=== PATIENT | female | born 1985 | race Caucasian/White ===

== ENCOUNTER 2018-04-19 15:09 | Emergency (ER) | payer BC ==
--- NOTE | 2018-04-19 15:47 | EDM.PDOC ---
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 She states that she is around 9 weeks . her LMP was 02/06/18. She notes that she has had 1 miscarriage, and 1 prior live . She states that this afternoon she noticed the vaginal bleeding with small stringy clots associated. She thinks that she has been soaking 1 pad/hr. She does take progesterone suppositories. She is A- blood type and will need a rhogham injection today. She notes that she is having some abdominal cramping associated with this as well. She does still have her appendix, but denies any fever/chills. She is not having pain anywhere. 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 Social & Family History - Family History Family Medical History: Noncontributory - Tobacco Use Smoking Status *Q: Never Smoker - Caffeine Use Caffeine Use: Reports: None - Recreational Drug Use Recreational Drug Use: No ED ROS GENERAL - Review of Systems Review Of Systems: See Below Constitutional: Denies: Fever, Chills HEENT: Reports: No Symptoms Respiratory: Reports: No Symptoms Cardiovascular: Reports: No Symptoms Endocrine: Reports: No Symptoms GI/Abdominal: Reports: No Symptoms : Reports: Other (vaginal bleeding/lower abdominal cramping) Musculoskeletal: Reports: No Symptoms Skin: Reports: No Symptoms Neurological: Reports: No Symptoms Psychiatric: Reports: No Symptoms Hematologic/Lymphatic: Reports: No Symptoms, Other (Patient has A- blood type) Immunologic: Reports: No Symptoms ED EXAM - Physical Exam Exam: See Below Exam Limited By: No Limitations General Appearance: Alert, WD/WN, No Apparent Distress Eye Exam: Bilateral Eye: Normal Inspection, PERRL Ears: Normal External Exam Nose: Normal Inspection Throat/Mouth: Normal Inspection, Normal Oropharynx Head: Atraumatic, Normocephalic Neck: Normal Inspection Respiratory/Chest: No Respiratory Distress, Lungs Clear, Normal Breath Sounds, No Accessory Muscle Use, Chest Non-Tender Cardiovascular: Normal Peripheral Pulses, Regular Rate, Rhythm, No Murmur GI/Abdominal Exam: Normal Bowel Sounds, Soft, Non-Tender, No Distention, No Mass (Female) Exam: Other (deferred due to transvaginial US) Heart Tones: Not Trinity Movement: Not Appreciated Extremities: Normal Inspection, Normal Capillary Refill Neurological: Alert, Oriented, Normal Cognition, No Motor/Sensory Deficits Psychiatric: Normal Affect, Anxious, Tearful (pt is worried that she may be having another miscarriage) Skin Exam: Warm, Dry, Intact, Normal Color Course - Vital Signs Last Recorded V/S: Last Vital Signs Temp 99 F 04/19/18 15:10 Pulse 104 H 04/19/18 15:10 Resp 18 04/19/18 15:10 BP 122/79 04/19/18 15:10 Pulse Ox 100 04/19/18 15:10 - Orders/Labs/Meds Orders: Active Orders 24 hr Category Date Time Status PATIENT RETYPE [BBK] Routine Lab 04/19/18 17:02 Ordered Labs: Laboratory Tests 04/19/18 04/19/18 04/19/18 Range/Units 15:44 15:44 15:44 WBC 9.76 (3.98-10.04) K/mm3 RBC 4.45 (3.98-5.22) M/mm3 Hgb 12.9 (11.2-15.7) gm/L Hct 38.6 (34.1-44.9) % MCV 86.7 (79.4-94.8) fl MCH 29.0 (25.6-32.2) pg MCHC 33.4 (32.2-35.5) g/dl RDW Std Deviation 39.9 (36.4-46.3) fL Plt Count 393 H (182-369) K/mm3 MPV 8.5 L (9.4-12.3) fl Neutrophils % (Manual) 78 H (40-60) % Band Neutrophils % 0 (0-10) % Lymphocytes % (Manual) 15 L (20-40) % Atypical Lymphs % 0 % Monocytes % (Manual) 5 (2-10) % Eosinophils % (Manual) 1 (0.7-5.8) % Basophils % (Manual) 1 (0.1-1.2) Platelet Estimate Adequate RBC Morph Comment Normal HCG, Quant 19444.0 mIU/mL Blood Type A NEGATIVE Gel Antibody Screen Negative Rhogam Indicated Yes Meds: Medications Discontinued Medications Generic Name Dose Route Start Last Admin Trade Name Chrissy PRN Reason Stop Dose Admin Acetaminophen 650 mg 04/19/18 17:07 04/19/18 17:18 Tylenol PO 04/19/18 17:08 650 mg NOW ONE Administration - Re-Assessments/Exams Free Text/Narrative Re-Assessment/Exam: 04/19/18 15:51 Pt presents to the ED for the evaluation of vaginal bleeding with . Have ordered CBC, HCG quant, Rhogham workup, and a transvaginal US for further evaluation. Have reviewed prior records from [facility] in [place], [place]. The patient's blood type is A-, so she will need a rhogham injection. 04/19/18 17:15 US is done and the radiologist reads: No pole or yolk sac seen. Gestational sac at 6 weeks 4 days. Findings most likely represent nonviable although recommend repeat study in 11 days, if patient does not miscarry in the mean time. These results were discussed at bedside with patient and . She states that her OB doctor, Dr. Thayer would like today's labs and note faxed to their office. Pt was experiencing some cramping and 650mg Tylenol has been ordered. I have recommended Bed rest, no sexual activity and return precautions. I have also recommended that the patient follow up with her OB sometime this week yet for a closer f/u. Pt is agreeable to this. Departure - Departure Time of Disposition: 17:24 Disposition: Home, Self-Care 01 Condition: Fair Clinical Impression: Threatened miscarriage in early - Discharge Information *PRESCRIPTION DRUG MONITORING PROGRAM REVIEWED*: No *COPY OF PRESCRIPTION DRUG MONITORING REPORT IN PATIENT LOPEZ: No Instructions: Vaginal Bleeding During , First Trimester, Threatened Miscarriage, [id number] Referrals: PCP,Not In Area [Primary Care Provider] - Forms: ED Department Discharge Additional Instructions: You have been evaluated in the ED for vaginal bleeding during . Your US showed that you could be possible having a miscarriage. Recommend early follow up with your OB, Dr. Thayer sometime this week yet for f/ u ultrasound and further testing if needed. Please return to ED if you are soaking through 1 or more pads per hour for 2-3 hours straight. Recommend bed rest and non-exertional activities, no sexual activity until you can get follow up done by your OB. - My Orders Last 24 Hours: My Active Orders 04/19/18 17:02 PATIENT RETYPE [BBK] Routine - Assessment/Plan Last 24 Hours: My Active Orders 04/19/18 17:02 PATIENT RETYPE [BBK] Routine
--- NOTE | 2018-04-19 16:59 | US ---
First trimester obstetrical ultrasound: Multiple real-time images were obtained transvaginally. Single intrauterine gestational sac is seen. No definite pole or yolk sac is seen. Right ovarian cyst is seen measuring 2.9 cm which appears simple and most likely physiologic. Left ovary is unremarkable. No free fluid is seen. Measurements: Mean sac diameter: 1.64 cm - 6 weeks 4 days Impression: 1. No pole or yolk sac is seen. Gestational sac at 6 weeks 4 days. Findings most likely represent nonviable although recommend repeat study in 11 days and patient does not miscarry in the interim. Diagnostic code #5
[2018-04-19] MEDS ORDERED: Acetaminophen 325 MG Tab PO ONE (17:07)
== END 2018-04-19 17:40 | disposition home or self-care (01) ==
LOC: JD.ED 15:09
DX: O20.0 Threatened abortion (principal); Z79.899 Other long term (current) drug therapy; Z3A.09 9 weeks gestation of pregnancy
CPT/HCPCS: 36415; 76817; 84702; 85007; 85027; 86850; 86900; 86901; 96372; 99284; A9270; J2790

== ENCOUNTER 2019-07-09 17:00 | Emergency (ER) | payer BC ==
[2019-07-09] MEDS ORDERED: Ondansetron 4 MG/2 ML SDV IVPUSH ONE (17:28)
[2019-07-09] MEDS ORDERED: HYDROmorphone 0.5 MG/0.5 ML Syringe IVPUSH ONE (17:28)
[2019-07-09] MEDS ORDERED: Sodium Chloride 0.9% 10 ML Syringe FLUSH PRN (17:28)
--- NOTE | 2019-07-09 17:35 | EDM.PDOC ---
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 The patient notes that she had a D&C on Wednesday, 07/04, by Dr. Thayer in [place] due to a miscarriage. The patient notes that the BELLING MACHINE OPERATOR states that the procedure went well, she had very minimal bleeding, and she notes no increased vaginal bleeding at this time. The patient is having some nausea, but no vomiting or diarrhea, she states she did have a BM this a.m., but was not able to pass gas today but was able to pass gas yesterday. She states she has not had any fevers at home but has felt chilled, she has no other abdomen surgeries. She did take ibuprofen, 800 mg last at 7 AM, she has been alternating between Tylenol and ibuprofen for the pain, is not been doing much. She tried taking the narcotic pain medications given but she states that they made her nauseous so she stopped taking them. Patient notes generalized bloating in her abdomen as well, upon initial exam she does look rather uncomfortable on the ER cot. Abdominal Pain Score (Numeric/FACES): 8 - Related Data Allergies Allergy/AdvReac Type Severity Reaction Status Date / Time No Known Allergies Allergy Verified 07/09/19 17:17 Home Meds: Home Meds . [No Known Home Meds] 07/09/19 [History] Past Medical History BELLING MACHINE OPERATOR History: Reports: Spontaneous - Past Surgical History GI Surgical History: Reports: Colonoscopy Female Surgical History: Reports: D&C (07/05/19) Other Female Surgeries/Procedures: also hx of infertility with In vitro fertilization Social & Family History - Family History Family Medical History: Noncontributory - Tobacco Use Smoking Status *Q: Never Smoker Second Hand Smoke Exposure: No - Caffeine Use Caffeine Use: Reports: Coffee, Soda - Recreational Drug Use Recreational Drug Use: No ED ROS GENERAL - Review of Systems Review Of Systems: Comprehensive ROS is negative, except as noted in HPI. ED EXAM, RENAL/ - Physical Exam Exam: See Below Exam Limited By: No Limitations General Appearance: Alert, WD/WN, No Apparent Distress (pt appears to be moderatly uncomfortable d/t abd pain/bloating) Throat/Mouth: Normal Inspection, Normal Lips, Normal Teeth, Normal Gums, Normal Oropharynx, Normal Voice, No Airway Compromise Head: Atraumatic, Normocephalic Neck: Normal Inspection Respiratory/Chest: No Respiratory Distress, Lungs Clear, Normal Breath Sounds, No Accessory Muscle Use, Chest Non-Tender Cardiovascular: Normal Peripheral Pulses, Regular Rate, Rhythm, No Murmur GI/Abdominal: Normal Bowel Sounds, Soft, No Mass, Distended (minimally distended ), Guarding (d/t pain), Tender (generalized) (Female) Exam: Deferred Extremities: Normal Inspection, Normal Capillary Refill Neurological: Alert, Oriented, Normal Cognition, No Motor/Sensory Deficits Psychiatric: Normal Affect, Normal Mood Skin Exam: Warm, Dry, Intact, Normal Color, No Rash Course - Vital Signs Last Recorded V/S: Last Vital Signs Temp 98.7 F 07/09/19 17:12 Pulse 73 07/09/19 17:12 Resp 16 07/09/19 17:12 BP 128/81 07/09/19 17:12 Pulse Ox 100 07/09/19 17:12 - Orders/Labs/Meds Orders: Active Orders 24 hr Category Date Time Status Peripheral IV Care [RC] . DIRECTED Care 07/09/19 17:28 Ordered Sodium Chloride 0.9% [Saline Flush] Med 07/09/19 17:28 Ordered 10 ml FLUSH ASDIRECTED PRN Peripheral IV Insertion Adult [OM.PC] Stat Oth 07/09/19 17:28 Ordered Medication Orders Sodium Chloride (Saline Flush) 10 ml FLUSH ASDIRECTED PRN PRN Reason: Keep Vein Open Last Admin: 07/09/19 17:41 Dose: 10 ml Labs: Laboratory Tests 07/09/19 07/09/19 Range/Units 17:41 17:41 WBC 8.60 (3.98-10.04) K/mm3 RBC 4.12 (3.98-5.22) M/mm3 Hgb 11.9 (11.2-15.7) gm/dl Hct 36.8 (34.1-44.9) % MCV 89.3 (79.4-94.8) fl MCH 28.9 (25.6-32.2) pg MCHC 32.3 (32.2-35.5) g/dl RDW Std Deviation 41.9 (36.4-46.3) fL Plt Count 370 H (182-369) K/mm3 MPV 8.9 L (9.4-12.3) fl Neutrophils % (Manual) 53 (40-60) % Band Neutrophils % 0 (0-10) % Lymphocytes % (Manual) 43 H (20-40) % Atypical Lymphs % 0 % Monocytes % (Manual) 4 (2-10) % Eosinophils % (Manual) 0 L (0.7-5.8) % Basophils % (Manual) 0 L (0.1-1.2) Platelet Estimate Adequate Plt Morphology Comment Normal Anisocytosis 1+ slight RBC Morph Comment Not Reportable Sodium 143 (136-145) mEq/L Potassium 3.6 (3.5-5.1) mEq/L Chloride 106 (98-107) mEq/L Carbon Dioxide 26 (21-32) mEq/L Anion Gap 14.6 (5-15) BUN 8 (7-18) mg/dL Creatinine 0.8 (0.55-1.02) mg/dL Est Cr Clr Drug Dosing 79.85 mL/min Estimated GFR (MDRD) > 60 (>60) mL/min BUN/Creatinine Ratio 10.0 L (14-18) Glucose 93 (74-106) mg/dL Calcium 9.2 (8.5-10.1) mg/dL Total Bilirubin 0.2 (0.2-1.0) mg/dL AST 28 (15-37) U/L ALT 52 (14-59) U/L Alkaline Phosphatase 69 (46-116) U/L Total Protein 7.6 (6.4-8.2) g/dl Albumin 3.9 (3.4-5.0) g/dl Globulin 3.7 gm/dL Albumin/Globulin Ratio 1.1 (1-2) Meds: Medications Generic Name Dose Route Start Last Admin Trade Name Freq PRN Reason Stop Dose Admin Sodium Chloride 10 ml 07/09/19 17:28 07/09/19 17:41 Saline Flush FLUSH 10 ml ASDIRECTED PRN Administration Keep Vein Open Discontinued Medications Generic Name Dose Route Start Last Admin Trade Name Freq PRN Reason Stop Dose Admin Hydromorphone HCl 0.5 mg 07/09/19 17:28 07/09/19 17:42 Dilaudid IVPUSH 07/09/19 17:29 0.5 mg ONETIME ONE Administration Ondansetron HCl 4 mg 07/09/19 17:28 07/09/19 17:42 Zofran IVPUSH 07/09/19 17:29 4 mg ONETIME ONE Administration - Re-Assessments/Exams Free Text/Narrative Re-Assessment/Exam: 07/09/19 17:39 Patient presents to the ED for evaluation of her ongoing abdomen pain and bloating. Have ordered IV to be placed, some baseline labs, and a flat and upright abdomen to evaluate air-fluid levels, or possible perforation. Patient be given 0.5mg of Dilaudid and 4 mg Zofran. 07/09/19 17:49 The patient's abdomen x-ray has been done and read per radiology, nothing acute appreciated on the 2 view abdomen x-ray. There is quite a bit of gas throughout the abdomen, and some stool within the right colon, this might be the source of her pain, there was no free air identified on the x-ray to suggest a perforation. 07/09/19 18:27 Labs have returned, and are essentially within normal limits. With the abdomen x-ray being normal as it is, likely she does have some gas pains built up. Patient was reassessed at bedside and states she is feeling much better after the small amount of Dilaudid and Zofran that was given. I will provide her with a prescription for Zofran and discharged home and have her take her other regular medications and start stool softeners to help keep her regular. Patient is okay with this plan and will follow-up with BELLING MACHINE OPERATOR tomorrow or the next day if things are not getting much better. Departure - Departure Time of Disposition: 18:29 Disposition: Home, Self-Care 01 Condition: Good Clinical Impression: Bloating symptom, Nausea Abdominal pain Qualifiers: Abdominal location: generalized Qualified Code(s): R10.84 - Generalized abdominal pain - Discharge Information *PRESCRIPTION DRUG MONITORING PROGRAM REVIEWED*: No *COPY OF PRESCRIPTION DRUG MONITORING REPORT IN PATIENT LOPEZ: No Instructions: Abdominal Pain, Adult, [id number] Referrals: [place],Teresita A, MD [Primary Care Provider] - Forms: ED Department Discharge Additional Instructions: You were evaluated in the ER today regarding your generalized abdominal pain, nausea. X-rays were taken and some basic labs, everything is within normal limits, there were no emergent or other worrisome processes going on made apparent at tres's visit. Your abdomen x-ray did show quite a bit of air throughout the colon, which would be suggestive of gas pains, and is in line with your symptomology. You did get pretty good relief from the IV pain medications and nausea medications that we gave, so I recommend taking your previous narcotic pain medications as prescribed, you were given a prescription for Zofran, please take 1 tab dissolvable under your tongue every 8 hours for nausea, recommend you take this while taking the narcotic pain medications. As you know, narcotic pain medicine can be constipating, recommend you start taking stool softener like MiraLAX or Dulcolax, on daily basis, and think about the possibility of using probiotics in your daily regimen to help regulate good gut health. Recommend you follow-up with BELLING MACHINE OPERATOR sometime this week to make sure your symptoms are getting better as expected. As always if symptoms should change or worsen we are here 05/10 do not hesitate to return to the ER if needed. Sepsis Event Note - Evaluation Sepsis Screening Result: No Definite Risk - Focused Exam Vital Signs: Vital Signs Temp Pulse Resp BP Pulse Ox 07/09/19 17:12 98.7 F 73 16 128/81 100 Date Exam was Performed: 07/09/19 Time Exam was Performed: 18:27 - My Orders Last 24 Hours: My Active Orders 07/09/19 17:28 Peripheral IV Care [RC] . DIRECTED Sodium Chloride 0.9% [Saline Flush] 10 ml FLUSH ASDIRECTED PRN Peripheral IV Insertion Adult [OM.PC] Stat - Assessment/Plan Last 24 Hours: My Active Orders 07/09/19 17:28 Peripheral IV Care [RC] . DIRECTED Sodium Chloride 0.9% [Saline Flush] 10 ml FLUSH ASDIRECTED PRN Peripheral IV Insertion Adult [OM.PC] Stat
--- NOTE | 2019-07-09 17:45 | CR ---
Abdomen: Upright and supine views of the abdomen were obtained. Comparison: No previous abdominal x-ray. Bowel gas pattern is normal. No abnormal calcifications or soft tissue abnormality is seen. Bony structures appear within normal limits for the patient's age. No free air is seen. Visualized lung bases are clear. Impression: 1. Nothing acute is appreciated on 2 view abdominal x-ray. Diagnostic code #1 This report was dictated in MDT
== END 2019-07-09 18:44 | disposition home or self-care (01) ==
LOC: JD.ED 17:00
DX: R10.84 Generalized abdominal pain (principal); R11.0 Nausea
CPT/HCPCS: 36415; 74019; 80053; 85007; 85027; 96374; 96375; 99284; J1170; J2405